=== PATIENT | male | born 1980 | race African-American/Black ===

== ENCOUNTER 2017-10-03 20:23 | Emergency (ER) | payer OTHER ==
[~2017-10-03] VITALS: Ht 182.9 cm; Wt 63.5 kg
[~2017-10-03 20:23] MED LIST: ACYCLOVIR 400400 MG PO; IBUPROFEN 800800 M1 PO; PERCOCET 5-3251 EACH PO; PERCOCET PO; VALTREX 500 MG500 M1 PO
[2017-10-03 21:19] LABS: ABSOLUTE BASOPHILS 0.1 thou/uL (0.0-0.2); ABSOLUTE EOSINOPHILS 0.1 thou/uL (0.0-0.7); ABSOLUTE LYMPHOCYTES 1.6 thou/uL (0.8-5.3); ABSOLUTE MONOCYTES 0.6 thou/uL (0.0-1.2); ABSOLUTE NEUTROPHILS 3.3 thou/uL (1.6-8.1); BASOPHILS 1.1 %; EOSINOPHILS 1.4 %; HEMATOCRIT 45.2 % (42.0-52.0); HEMOGLOBIN 15.1 gm/dL (14.0-18.0); LYMPHOCYTES 27.7 %; MCH 31.1 pg (26.0-34.0); MCHC 33.4 g/dL (28.0-37.0); MCV 93.3 fL (80.0-100.0); MONOCYTES 10.3 %; MPV 8.5 fl. (7.2-11.1); NUCLEATED RBCS 0 /100WBC; PLATELET COUNT* 198 thou/uL (150-400); POLYS 59.5 %; RBC 4.84 mil/uL (4.50-6.00); RDW-CV 14.1 % (10.5-14.5); WBC 5.6 thou/uL (4.0-11.0)
[2017-10-03 21:27] LABS: ANION GAP 2 mmol/L (7-16); BUN 13 mg/dL (7-18); CALCIUM 8.3 mg/dL (8.5-10.1); CHLORIDE 104 mmol/L (98-107); CO2 32 mmol/L (21-32); CREATININE 1.1 mg/dL (0.6-1.3); GLUCOSE 73 mg/dL (70-99); SODIUM 138 mmol/L (136-145)
[2017-10-03 21:29] LABS: INR 1.1; PROTIME 10.8 Seconds (9.20-11.50)
[2017-10-03 21:38] LABS: ALBUMIN 3.5 g/dL (3.4-5.0); ALKALINE PHOSPHATASE 108 U/L (46-116); LIPASE 320 U/L (73-393); NT-PRO BRAIN NAT PEPTIDE 7 pg/mL (<300); SGOT 19 U/L (15-37); SGPT 21 U/L (30-65); TOTAL BILIRUBIN 0.3 mg/dL (<0.1-1.0); TOTAL PROTEIN 6.9 g/dL (6.4-8.2); TROPONIN-I LEVEL <0.06 ng/mL (<0.06)
[2017-10-03 22:40] LABS: URINE BILIRUBIN NEGATIVE (Negative); URINE BLOOD NEGATIVE (Negative); URINE CLARITY CLEAR; URINE COLOR YELLOW; URINE GLUCOSE-RANDOM NEGATIVE (Negative); URINE KETONES NEGATIVE (Negative); URINE LEUKOCYTES-REFLEX NEGATIVE (Negative); URINE NITRITE-REFLEX NEGATIVE (Negative); URINE PROTEIN NEGATIVE (Negative); URINE SPECIFIC GRAVITY <= 1.005 (1.005-1.030); URINE UROBILINOGEN 0.2 E.U./dl (0.2-1.0)
[2017-10-03 22:49] LABS: AMP/METHAMP Negative (Negative); BARBITURATES Negative (Negative); BENZODIAZEPINES Negative (Negative); COCAINE Negative (Negative); METHADONE Negative (Negative); OPIATES Negative (Negative); PCP Negative (Negative); THC Negative (Negative)
[2017-10-03] MEDS ORDERED: HYDROCODONE-AP1 EAC6 PO (23:06)
[2017-10-03] MEDS ORDERED: CIPROFLOXACIN500 M1 PO (23:06)
[2017-10-03] MEDS ORDERED: ZOFRAN ODT4 MG PO (23:06)
[2017-10-03] MEDS ORDERED: FLAGYL500 MG PO (23:06)
[2017-10-03 23:23] VITALS: BP 127/89
--- NOTE | 2017-10-04 15:53 | EKG ---
[place] [address] ELECTROCARDIOGRAM REPORT Name: GERRY RENDON Room: [facility]#: [id number] Admission: 10/03/17 Attend Phys: Discharge: 10/03/17 Date of : 80 Report #: [id number] THIS REPORT FOR: //name// [facility] ED Test Date: 2017-10-03 Test Time: 20:30:43 Pat Name: GERRY MATHEWS Department: Room: Gender: [employer] Operator: IKE Luther : 1980 Requested By: Scarlett Garcia Order Number: [id number] MD: Neal Tristan Measurements Intervals [place] Rate: 74 P: 56 NV: 125 QRS: -10 QRSD: 112 T: 11 QT: 389 QTc: 432 Interpretive Statements Sinus rhythm Left ventricular hypertrophy ST elev, probable normal early repol pattern No previous ECG available for comparison Electronically Signed On 10-04-2017 15:53:33 [employer] HE[employer] SPECIALIST by Neal Tristan [email or web address] <ELECTRONICALLY SIGNED> By: Neal Tristan MD, [facility] 10/04/17 1553 29 29 Neal Tristan MD, FACC /EPI
== END 2017-10-03 23:24 | disposition home or self-care (01) ==
LOC: M.ERS 20:23
PROVIDERS: Emergency Medicine
DX: R19.7 Diarrhea, unspecified (principal); R11.10 Vomiting, unspecified

== ENCOUNTER 2020-01-07 04:23 | Emergency (ER) | payer OTHER ==
[~2020-01-07] VITALS: Ht 170.2 cm; Wt 63.5 kg
[~2020-01-07 04:23] MED LIST changes: +CIPROFLOXACIN500 M1 PO; +FLAGYL500 MG PO; +HYDROCODONE-AP1 EAC6 PO; +ZOFRAN ODT4 MG PO
[2020-01-07 04:31] VITALS: BP 135/72
[2020-01-07] MEDS ORDERED: AUGMENTIN 875-1 EACH PO (04:44)
== END 2020-01-07 04:57 | disposition home or self-care (01) ==
LOC: M.ERS 04:23
DX: S61.051A Open bite of right thumb without damage to nail, initial encounter (principal); Y04.1XXA Assault by human bite, initial encounter; Y93.89 Activity, other specified; Y92.89 Other specified places as the place of occurrence of the external cause; Y99.8 Other external cause status

== ENCOUNTER 2021-07-23 00:47 | Emergency (ER) | payer OTHER ==
[~2021-07-23] VITALS: Ht 167.6 cm; Wt 63.5 kg
[~2021-07-23 00:47] MED LIST changes: +AUGMENTIN 875-1 EACH PO
[2021-07-23] MEDS ORDERED: PREDNISONE50 MG PO (03:54)
[2021-07-23 05:30] VITALS: BP 107/61
== END 2021-07-23 05:30 | disposition home or self-care (01) ==
LOC: M.ERS 00:47
DX: R21 Rash and other nonspecific skin eruption (principal); T78.40XA Allergy, unspecified, initial encounter; Y92.89 Other specified places as the place of occurrence of the external cause